=== PATIENT | male | born 1995 | race Caucasian/White ===

== ENCOUNTER 2016-05-03 23:35 | Emergency (ER) | payer OTHER ==
[~2016-05-03] VITALS: Ht 175.3 cm; Wt 70.6 kg
[~2016-05-03 23:35] MED LIST: ALPR1TAB3 PO; AMPH10TA2 PO; AMPH30CA3 PO
[2016-05-03 23:38] VITALS: BP 134/85; PULSE 139; TEMP 37; O2SAT 97; Ht 175.3 cm; Wt 70.6 kg
[2016-05-03] MEDS ORDERED: ALPRAZOLAM 0.5 MG TAB PO STA (23:52)
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
[2016-05-03] MEDS ORDERED: ALPR-385 PO (23:54)
== END 2016-05-04 00:05 | disposition home or self-care (01) ==
LOC: C.EDB 23:36 → C.EDA 05-04 00:05
DX: F41.9 Anxiety disorder, unspecified (principal); F90.9 Attention-deficit hyperactivity disorder, unspecified type; F17.200 Nicotine dependence, unspecified, uncomplicated; Z83.79 Family history of other diseases of the digestive system; Z83.6 Family history of other diseases of the respiratory system; Z79.899 Other long term (current) drug therapy